=== PATIENT | female | born 1985 | race Caucasian/White ===

== ENCOUNTER 2023-10-24 06:16 | Emergency (ER) | payer OTHER, SELFPAY ==
[2023-10-24 06:20] VITALS: BMI 24.8
[2023-10-24 06:23] VITALS: BP 104/52
[2023-10-24 06:24] VITALS: BP 104/52
[2023-10-24 06:41] LABS: % Basophils 0.3 % (0-2); % Immature Granulocytes 0.3 % (0-0.5); % Lymphocytes 14.5 % (20.5-51.1); % Monocytes 5.5 % (1.7-9.3); % Neutrophils 77.4 % (42.2-75.2); Absolute Eosinophils 0.2 10^3/uL (0-0.7); Absolute Lymphocytes 1.5 10^3/uL (1.2-3.4); Absolute Monocytes 0.6 10^3/uL (0.1-0.6); Absolute Neutrophils 8.1 10^3/uL (1.4-6.5); Hematocrit 33.7 % (37.0-47.0); Hemoglobin 11.6 g/dL (12.0-16.0); Mean Corp Hgb Conc. 34.4 g/dL (33.0-37.0); Mean Corpuscular Hgb 29.7 pg (27.0-31.0); Mean Corpuscular Volume 86.2 fL (81.0-99.0); Mean Platelet Volume 10.8 fL (7.4-10.4); Nucleated Red Blood Cells % 0 %; Platelet Count 229 10^3/uL (130-400); Red Blood Cell Count 3.91 10^6/uL (4.20-5.40); Red Cell Dist. Width 12.1 % (11.5-14.5); White Blood Cell Count 10.5 10^3/uL (4.8-10.8)
[2023-10-24 06:50] LABS: HCG, Serum Qualitative Screen Negative
--- NOTE | 2023-10-24 06:59 | ED.GENMED ---
History of Present Illness
General
Chief Complaint: Abdominal Pain
Source: patient
Exam Limitations: none
Time Seen by Provider: 10/24/23 06:18
Nursing documentation reviewed up to this point in time: agreed with
History of Present Illness
History of Present Illness:
Patient presents to ED secondary to sudden onset of abdominal pain with nausea sensation, which woke the patient up from sleep this morning around 4 AM. Abdominal pain described as sharp, lower abdomen, nonradiating, without any alleviating or
exacerbating factors. Patient recalls having had similar episode 10 years ago when she had ruptured ovarian cyst, requiring 'surgery'. Denies trauma. Denies recent illness. Denies recent change in medications or diet. Denies recent change in
bowel habits. Patient's surgical history includes .
Review of Systems
Review of Systems
Allergies reviewed?: Yes
All Other Systems: ROS reviewed and negative except as documented in HPI and ROS
Constitutional: Reports no symptoms; Denies fever
EENT: Reports no symptoms
Respiratory: Reports no symptoms
Cardiac: Reports no symptoms
ABD/GI: Reports abdominal pain, nausea and vomiting; Denies diarrhea
: Reports no symptoms
Musculoskeletal: Reports no symptoms
Skin: Reports no symptoms
Neurological: Reports no symptoms
Phy Exam
Physical Exam
Physical Exam:
Physical Exam
General: mild distress, not acutely ill. afebrile.
Head: nc/at. eomi
Neck: supple. no meningeal signs.
Heart: s1/s2 regular rate and rhythm, no murmur. equal radial pulses.
Lungs: no acute respiratory distress. clear bilaterally
Abdomen: normal bowel sounds. mild RLQ/suprapubic tenderness to palpation.
Neuro: alert and oriented. no focal neurological deficits
Skin: no rash
Psychiatric: well kept. interactive and cooperative
Extremities: no edema. no calf tenderness.
Course
Orders/Labs/Results
Orders:
Orders
10/24/23 06:32
Test Result ONCE
10/24/23 06:35
Complete Blood Count/With Diff Urgent
Comprehensive Metabolic Panel Urgent
HCG, Serum Qualitative Screen Urgent
10/24/23 06:41
0.9% Sodium Chloride 1000 ml [Nss] 1,000 ml IV BOLUS
Ketorolac [Toradol] 30 mg IV NOW STA
Ondansetron Injectable [Zofran] 4 mg IV NOW STA
US Pelvis W Transvag Combined Urgent
Comment:
Reason For Exam: RLQ pain
10/24/23 07:02
Ketorolac [Toradol] 30 mg .ROUTE .STK-MED ONE
Ondansetron Injectable [Zofran] 4 mg .ROUTE .STK-MED ONE
Abnormal Lab Results
10/24/23
06:35
RBC 3.91 L 10^6/uL
(4.20-5.40)
Hgb 11.6 L g/dL
(12.0-16.0)
Hct 33.7 L %
(37.0-47.0)
MPV 10.8 H fL
(7.4-10.4)
Absolute Neuts (auto) 8.1 H 10^3/uL
(1.4-6.5)
Neutrophils % 77.4 H %
(42.2-75.2)
Lymphocytes % 14.5 L %
(20.5-51.1)
Chloride 110 H mmol/L
(98-107)
Carbon Dioxide 20 L mmol/L
(22-30)
BUN 19 H mg/dl
(7-17)
Creatinine 0.5 L mg/dL
(0.6-1.0)
Glucose 102 H mg/dl
(70-99)
Total Protein 5.9 L g/dl
(6.3-8.2)
10/24/23 06:35
10/24/23 06:35
Vital Signs
Initial and Last Documented VS:
Initial Vital Signs
BP
104/52
10/24/23 06:23
Last Documented Vital Signs
Temp Pulse Resp BP Pulse Ox
98.5 F 82 15 126/71 99
10/24/23 10:46 10/24/23 10:46 10/24/23 10:46 10/24/23 10:46 10/24/23 10:46
MDM/Problems Addressed
MDM/Problems Addressed:
Pt with moderate improvement in symptoms after treatment, and remains hemodynamically stable during observation.
H/H stable.
Discussed with on-call gynecological assistant physician, , who will come and evaluate patient in ED.
Pt seen in ED by - offered OR evaluation. However, pt would like to be discharged home for f/u with her gynecological assistant physician. Will return to ED with worsening symptoms.
*Critical Care Note
Total Time (30-74mins, 75-104mins- exclusive of procedures): Not Applicable
ED Attending Note
-
Portions of this chart may have been created with voice recognition software.� Occasional wrong word or��sound alike� substitutions may have occurred due to the inherent limitations of voice recognition software.
Discharge Plan
Departure
Patient Disposition: Home (Routine Discharge)
Date of Disposition: 10/24/23
Time of Disposition: 12:03
Patient with high blood pressure during this ER visit?: Yes
Condition: Good
Discharge Problem:
Mass, ovarian
Instructions: Abdominal Pain, Adult ED
Prescriptions:
No Action
No Current Medications
0
Referrals:
NONE,* [Family Provider] -
Activity Restrictions/Additional Instructions:
As discussed, please follow-up with your [facility] physician for further evaluation and treatment. Please return to ED immediately with worsening symptoms, i.e. fever/worsening pain/vomiting.
Interventions
Interventions:
*Risk Screen - Suicide Last Done: 10/24/23 06:24
*General Assessment Last Done: 10/24/23 06:24
*Neglect/Abuse Screening Last Done: 10/24/23 06:24
ED- Fall Risk Assessment Last Done: 10/24/23 06:24
*ED COVID-19 Vaccine History Last Done: 10/24/23 06:24
*Nursing Disposition Last Done: 10/24/23 12:12
QK-Jcmqrn-Dwzzaiscry Assessment Last Done: 10/24/23 06:24
Discharge Date and Time
Discharge Date/Time: 10/24/23 12:12
Print Language: BENGALI
[2023-10-24 07:00] VITALS: BP 90/43
[2023-10-24 07:01] LABS: ALT (SGPT) 13 U/L (0-35); AST (SGOT) 19 U/L (14-36); Albumin 3.5 g/dl (3.5-5.0); Alkaline Phosphatase 43 U/L (38-126); Blood Urea Nitrogen 19 mg/dl (7-17); Calcium 8.4 mg/dl (8.4-10.2); Carbon Dioxide 20 mmol/L (22-30); Chloride 110 mmol/L (98-107); Estimated Creatinine Clearance 106 ml/min; Glucose 102 mg/dl (70-99); Potassium 4.1 mmol/L (3.5-5.1); Sodium 135 mmol/L (135-145); Total Bilirubin 0.2 mg/dl (0.2-1.3); Total Protein 5.9 g/dl (6.3-8.2); eGFR > 60.00
[2023-10-24] MEDS: ZOFRAN 4 MG IV (07:03)
[2023-10-24] MEDS: TORADOL 30 MG IV (07:04)
[2023-10-24] MEDS: NSS 1000 IV (07:04)
[2023-10-24 08:36] VITALS: BP 115/71
[2023-10-24 10:46] VITALS: BP 126/71
--- NOTE | 2023-10-24 16:40 | CON.MD ---
Consultation - Medical
-
38yo presented to the ER with c/o lower abdominal/pelvic pain of sudden onset, woke her up from sleep this AM. Also had nausea at the time. Since presenting she received 1 dose of Toradol and states her pain has almost resolved and her nausea
has completely resolved. She thought her symptoms were related to a ruptured cyst as she has had this previously. She has no vaginal bleeding. Has an IUD in place and does not get periods with this.
PMHx: None
PSHx: Diag Lap- bleeding hemorrhaghic cyst, C/S x1
POBHx: C/S x1
FHx: non contributory
SHx: Neg x3
Meds: LNG IUD (unsure of which one, placed 4 years ago)
All: NKDA
ROS: Neg
Vitals & Labs: below
Gen: nad, sleeping on entry
Abd: soft, nd, +mild ttp in right lowe abdomen with no r/g.
Pelvic US: The uterus measures 8.0 x 4.1 x 5.5 cm. The uterus has a homogeneous echotexture without focal mass. Endometrial stripe is within normal limits with intrauterine device in place. Endometrial stripe measures up to 3 mm in thickness.
The right ovary measures 8.3 x 4.2 x 4.9 cm and contains 2 apparent solid masses, measuring up to 2.2 cm, without significant internal color flow. Arterial and venous Doppler flow is demonstrated to the normal portion of the right ovary.
The left ovary measures 3.1 x 2.8 x 2.7 cm and is within normal limits. Arterial and venous Doppler flow is demonstrated to the left ovary.
Urinary bladder shows no gross abnormality. Small amount of simple free fluid in the pelvis, nonspecific.

IMPRESSION:

1. Enlarged right ovary with two apparent solid masses which may reflect edematous ovarian tissue and/or true masses. Limited visualization of the normal right ovarian tissue demonstrates preserved arterial and venous flow. Given the overall
appearance however, intermittent/partial ovarian torsion is difficult to exclude.
A/P: 38yo with pelvic pain and enlarged ovary
I spoke with the patient and her partner who is present. I reviewed the findings on Pelvic US and suspicion that her clinical presentation and the changes to the ovary are related to torsion. I reviewed what ovarian torsion is and the concern that
the ovary can become further compromised and even non viable if torsion went untreated. I therefore recommended and offered to proceed with further surgical exploration. This will allow me to determine with certainty if we are dealing with a torsion
and manage accordingly, either with cystectomy or an oophorectomy. I explained the proposed procedure of Diag Laparoscopy, risks of the procedure and post-op care and expectations.
Patient wanted to discuss this further with her in private, she then informed ER physician that she wants to be d/c home and will f/u with her own [employer].
30 mins spent with patient in and in documentation
Vital Signs / Labs
-
Vital Signs and Labs:
Temp Pulse Resp BP Pulse Ox
98.5 F 82 15 126/71 99
10/24/23 10:46 10/24/23 10:46 10/24/23 10:46 10/24/23 10:46 10/24/23 10:46
10/24/23 06:35
10/24/23 06:35
10/24/23
06:35
RBC 3.91 L
Hgb 11.6 L
Hct 33.7 L
MPV 10.8 H
Absolute Neuts (auto) 8.1 H
Neutrophils % 77.4 H
Lymphocytes % 14.5 L
Chloride 110 H
Carbon Dioxide 20 L
BUN 19 H
Creatinine 0.5 L
Glucose 102 H
Total Protein 5.9 L
== END 2023-10-24 12:12 | disposition home or self-care (01) ==
LOC: EMR 06:16
PROVIDERS: EMERGENCY PHYSICIAN Emergency Medicine; OTHER PHYSICIAN Obstetrics & Gynecology
DX: N83.9 Noninflammatory disorder of ovary, fallopian tube and broad ligament, unspecified (principal); R03.0 Elevated blood-pressure reading, without diagnosis of hypertension
CPT/HCPCS: 99284; 96374; 96375; 96361; 76830; 76856; 80053; 84703; 85025